=== PATIENT | male | born 1950 | race Hispanic/Latino ===

== ENCOUNTER 2019-02-11 08:21 | Outpatient (CLI) | payer MEDICARE ==
[2019-02-11 12:17] LABS: Alanine Aminotransferase 26 units/L (7-56); Albumin 4.8 g/dL (3.9-5); BUN/Creatinine Ratio 13; Blood Urea Nitrogen 13 mg/dL (9-20); Calcium 9.6 mg/dL (8.4-10.2); Chol/HDL Ratio 3.02 %; HDL Cholesterol 46 mg/dL (40-59); Hemolysis Index 11; LDL Cholesterol,Direct 75 mg/dL (50-130)
== END 2019-02-11 08:22 | disposition home or self-care (01) ==
LOC: LAB 08:21
PROVIDERS: ATTEND Internal Medicine
DX: I10 Essential (primary) hypertension (principal); E78.5 Hyperlipidemia, unspecified; E11.9 Type 2 diabetes mellitus without complications; E66.9 Obesity, unspecified; I25.83 Coronary atherosclerosis due to lipid rich plaque
CPT/HCPCS: 36415; 80053; 80061; 83036

== ENCOUNTER 2019-06-23 08:58 | Outpatient (CLI) | payer MEDICARE ==
[2019-06-23 10:12] LABS: Chol/HDL Ratio 3.17 %
== END 2019-06-23 08:59 | disposition home or self-care (01) ==
LOC: LAB 08:58
PROVIDERS: ATTEND Internal Medicine
DX: E78.5 Hyperlipidemia, unspecified (principal); E11.9 Type 2 diabetes mellitus without complications
CPT/HCPCS: 36415; 80061; 83036

== ENCOUNTER 2019-07-21 06:08 | Day surgery (SDC) | payer MEDICARE ==
[2019-07-21] MEDS ORDERED: SODIUM CHLORIDE 0.9% 500 ML 500 ML IV SCH (07:00)
[2019-07-21 07:01] LABS: Basophils # (Auto) 0.1 K/mm3 (0.0-0.1); Basophils % (Auto) 0.9 % (0.0-1.8); Eosinophils # (Auto) 0.2 K/mm3 (0.0-0.4); Eosinophils % (Auto) 3.4 % (0.0-4.3); Hematocrit 43.5 % (35.5-45.6); Hemoglobin 15.1 gm/dl (11.8-15.2); Lymphocytes # (Auto) 2.3 K/mm3 (1.2-5.4); Lymphocytes % (Auto) 36.9 % (13.4-35.0); Mean Corpuscular HGB Conc 35 % (32-34); Mean Corpuscular Volume 95 fl (84-94); Monocytes # (Auto) 0.6 K/mm3 (0.0-0.8); Monocytes % (Auto) 9.1 % (0.0-7.3); Platelet Count 173 K/mm3 (140-440); Red Blood Count 4.61 M/mm3 (3.65-5.03); Red Cell Distribution Width 13.2 % (13.2-15.2)
[2019-07-21 07:12] LABS: INR 1.13 (0.87-1.13)
[2019-07-21 07:13] LABS: BUN/Creatinine Ratio 15; Blood Urea Nitrogen 16 mg/dL (9-20); Calcium 8.9 mg/dL (8.4-10.2); Hemolysis Index 11
[2019-07-21] MEDS ORDERED: HEPARIN 10,000 UNITS/10 ML VIAL ONE (09:25)
[2019-07-21] MEDS ORDERED: fentaNYL 100 MCG/2 ML INJ ONE (09:25)
[2019-07-21] MEDS ORDERED: MIDAZOLAM 2 MG/2 ML INJ ONE (09:25)
[2019-07-21] MEDS ORDERED: VERAPAMIL 5 MG/2 ML INJ ONE (09:25)
[2019-07-21] MEDS ORDERED: HEPARIN/NS 5000 UNIT/500ML 1,000 ML IR ONE (09:25)
[2019-07-21] MEDS ORDERED: LIDOCAINE (2%) 20 MG/1 ML VIAL 20 ML MDV INFILTRATI ONE (09:26)
[2019-07-21] MEDS ORDERED: NITROGLYCERIN SYRINGE 3 ML ONE (09:26)
--- NOTE | 2019-07-21 11:55 | Event Note ---
Date: 07/21/19 The patient underwent outpatient cardiac catheterization that revealed multivessel disease, with a critical stenosis of the mid left anterior descending artery. We recommended hospital transfer to [place] for the patient to undergo immediate CT surgical assessment, but he adamantly refuses, wants to go home on medical therapy and pursue surgical assessment as outpatient. Patient's is at his bedside and concurs with his decision. I will arrange an early appointment with CT surgery at [facility], Dr. Kash Vogt's service.
[2019-07-21] MEDS ORDERED: SODIUM CHLORIDE 0.9% 1000 ML 1,000 ML IV SCH (12:00)
--- NOTE | 2019-07-21 12:01 | Discharge Summary ---
Short Stay Discharge Plan Activity: advance as tolerated Weight Bearing Status: Full Weight Bearing Diet: low fat, low cholesterol, low salt Wound: keep clean and dry Special Instructions: no heavy lifting (3 days) Additional Instructions: FOLLOW UP WITH DR FANTASMA MCCULLOUGH AT [facility] NEXT Thursday INSTRUCTED. Follow up with: MADIHA YE MD [Primary Care Provider] - 7 Days ERYN MERCER MD [Staff Physician] - 7 Days Prescriptions: ISOSORBIDE MONOnitrate [Imdur ER] 30 mg PO DAILY #30 tab.er.24h Nitroglycerin [Nitrostat] 0.4 mg SL Q5M PRN #25 tab PRN Reason: chest pain
--- NOTE | 2019-07-21 12:31 | Cardiac Catherization Report ---
CARDIAC CATHETERIZATION REPORT REASON FOR PROCEDURE: Chest pain and abnormal thallium stress test. PROCEDURES: 1. Left heart catheterization. 2. Selective left and right coronary angiography. 3. Left ventricular angiography. 4. Sedation time, start 9:50, end 10:13. The patient was prepped and draped in a sterile fashion after informed consent. The right radial cath site was prepped and draped after a negative Winston's test. The right radial artery was entered using Seldinger technique followed by placement of a 6-Kosovan hydrophilic sheath. Routine radial cocktail was administered via the sheath. Left coronary angiography was performed using a #3.5 left Emma catheter. A #4 right Emma was used for right coronary angiography. The pigtail catheter was used for left ventricle angiography. The catheters were then removed, sheath removed and hemostasis achieved using manual compression. The patient was returned to the postprocedure unit in stable condition. There were no complications. FINDINGS: HEMODYNAMICS: Left ventricular end-diastolic pressure was 23, following coronary angiography. Ascending aortic pressure was 155/71. There was no significant pressure gradient on pullback across the aortic valve. CORONARY ANGIOGRAPHY: The left main coronary artery was free of significant disease. A stent was visible in the proximal to mid left anterior descending artery. The stented segment was patent. Before the stent, there was a long, 75% stenosis of the proximal LAD extending from its ostium. Also, significantly, there was another focal 95-99% stenosis of the mid LAD beyond the stented segment. This lesion involved the origin of a medium sized mid diagonal branch. The first obtuse marginal branch of the circumflex was a large vessel that contained a focal, 90% stenosis of its proximal to mid segment. Following that, the AV groove circumflex then terminated in another medium to large terminal branch. There was diffuse moderate to severe atherosclerosis of the AV groove vessel leading to this terminal branch. There was an up to 70-80% luminal stenosis in this segment. The right coronary artery was a relatively small caliber, but dominant vessel. There was a long segment of calcification of the mid right coronary artery associated with diffuse atherosclerosis. There was a 70-75% luminal stenosis within this segment. There was very mild left ventricular systolic dysfunction with ejection fraction estimated at 45-50%. CONCLUSION: 1. Multivessel coronary artery disease as above including severe disease of the mid left anterior descending artery and severe disease of the large obtuse marginal branch of the circumflex. 2. Very mild left ventricular systolic dysfunction, ejection fraction 45-50%. RECOMMENDATION: Multivessel coronary artery revascularization, we will refer the patient for CT surgical assessment for coronary bypass. JOB# [id number] CAROL/NTS
[2019-07-21 13:15] VITALS: BP 156/73
== END 2019-07-21 14:00 | disposition home or self-care (01) ==
LOC: CATHLABREC 06:08
PROVIDERS: ATTEND Internal Medicine Cardiovascular Disease
DX: I25.119 Atherosclerotic heart disease of native coronary artery with unspecified angina pectoris (principal); I10 Essential (primary) hypertension; K21.9 Gastro-esophageal reflux disease without esophagitis; E78.00 Pure hypercholesterolemia, unspecified; M17.11 Unilateral primary osteoarthritis, right knee; Z95.5 Presence of coronary angioplasty implant and graft; Z79.82 Long term (current) use of aspirin; Z79.84 Long term (current) use of oral hypoglycemic drugs; Z79.899 Other long term (current) drug therapy; Z87.891 Personal history of nicotine dependence; Z72.89 Other problems related to lifestyle; Z98.890 Other specified postprocedural states
CPT/HCPCS: 36415; 80048; 85025; 85610; 85730; 93005; 93010; 93458; 99156; 99157; C1894; J1644; J2250; J3010; J7040; Q9967